=== PATIENT | female | born 1935 | race Caucasian/White ===

== ENCOUNTER → 2017-10-31 | Outpatient (CLI) | payer MEDICARE ==
[~2017-10-31] MED LIST: ACETAMINOPHEN650 M1 PO; ASA81 MG; BABY ASPIRIN81 MG PO; CALCIUM 600 +1 EAC8 PO; CELEBREX200 MG PO; CO Q-10200 MG PO; DIGOXIN125 MCG PO; FAMOTIDINE20 MG PO; IOPAMIDOL 370 MG/ML 200 ML INFUS..BTL INJ ONE; MELOXICAM7.5 MG PO; MULTI VITAMIN PO; PLAVIX75 MG PO; PRAVASTATIN SOD40 MG PO; SODIUM CHLORIDE 0.9% 100 ML 100 ML ONE; Z.0.ATENOLOL25 MG PO; ZOLOFT50 MG PO; [UNRECOGNIZED DRUG - OTHER] PO
[2017-10-31 08:30] LABS: BLOOD UREA NITROGEN 18 mg/dL (7-26); BUN/CREATININE RATIO 24 (6-25); CREATININE, SERUM 0.76 mg/dL (0.57-1.11); EST GLOMERULAR FILTRATION RATE > 60 ML/MIN (60-)
--- NOTE | 2017-10-31 11:14 | Diagnostic Imaging Report ---
EXAM: CTA OF THE ABDOMINAL AORTA INDICATION: \[id number] \[id number] \S\[id number] COMPARISON: CT abdomen and pelvis from 02/23/2016 TECHNIQUE: Multi-detector CT technology was employed. CTA of the abdomen and pelvis was performed after the administration of IV contrast. IV CONTRAST: 100 mL of Isovue-370 ORAL CONTRAST: None COMPLICATIONS: None RADIATION DOSE: Total DLP: 113.9 mGy*cm Estimated effective dose: (DLP x 0.015 x size factor) mSv CTDIvol has been reviewed. It is below the limits set by the Radiation Protocol Committee (RPC). For optimization of anatomic evaluation, multiplanar reconstruction, maximum intensity projections, and advanced 3-D off-line postprocessing were performed on a dedicated stand-alone workstation under the direct supervision of the interpreting physician. FINDINGS: Potential study limitations: None. VASCULAR WITH ADVANCED 3-D OFF-LINE POSTPROCESSING: Marked tortuosity of the abdominal aorta. Moderate calcified and noncalcified plaque throughout the abdominal aorta. 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 The maximum diameter of the abdominal aorta at this level is 3.2 cm, mildly aneurysmal. No surrounding intramural hematoma. Mild luminal narrowing of the most distal infrarenal abdominal aorta with minimal diameter of 0.7 cm due to extensive circumferential calcified plaques. The remaining abdominal aorta is normal in caliber. The abdominal aorta measures: 2.2 cm at the supramesenteric segment 2.3 cm at the mesenteric segment 1.8 cm at the renal segment 3.2 cm of the proximal infrarenal segment 2.5 cm at the mid infrarenal segment 1.3 cm at the aortic bifurcation, with a minimal lumen of 0.7 cm. The celiac trunk is patent and normal in caliber and associated with mild nonobstructing atherosclerotic calcifications in the proximal segment. Severe stenosis of the proximal SMA due to a mixed plaque. The remaining SMA and major branches are widely patent. The ELIJAH is patent without significant atherosclerotic disease. There are single right and 2 left renal arteries, which appear patent. Mild stenosis of the proximal inferior left renal artery due to calcified plaque. Nonobstructing calcified plaques in the proximal right renal artery. LOWER CHEST: Unremarkable. ABDOMEN: The liver, gallbladder, spleen, and pancreas appear normal. Mild thickening of the adrenal glands without discrete nodules. Both kidneys are normal in size, shape, and density. There is no abnormal mass or hydronephrosis. Unchanged right extrarenal pelvis. There is no significant retroperitoneal adenopathy. No free fluid or free air within the abdomen. The bowel appears unremarkable. BONES: Stable 1.8 cm sclerotic bone lesion within the posterior right ilium on series 3, image 81, which may represent a bone island or osteoma. Progressive sclerosis of L1 and L2 vertebral bodies and now with new involvement of T12. This may be due to progressive degenerative changes but consider bone scan if concern for primary malignancy. IMPRESSION: 1. Markedly tortuosity of the abdominal aorta with small wide neck penetrating ulcer/eccentric small aneurysm within the proximal infrarenal aspect resulting in mild dilatation (3.2 cm) at this level. -Diffuse calcified and noncalcified atherosclerotic changes throughout the abdominal aorta results in mild luminal narrowing at the most distal infrarenal segment with minimal diameter of 0.7 cm. -No acute abdominal aorta. 2. 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 Signed by: Dr. Mouna Fry M.D. on 10/31/2017 11:10 AM
== END ==
LOC: CT 07:41
PROVIDERS: ATTEND Internal Medicine Interventional Cardiology
DX: I71.4 Abdominal aortic aneurysm, without rupture (principal)
CPT/HCPCS: 36415; 74175; 82565; 84520; Q9967

== ENCOUNTER → 2018-03-25 | Outpatient (CLI) | payer MEDICARE ==
[~2018-03-25] MED LIST changes: -IOPAMIDOL 370 MG/ML 200 ML INFUS..BTL INJ ONE; -SODIUM CHLORIDE 0.9% 100 ML 100 ML ONE
[2018-03-25 10:08] LABS: BASOPHILS % 0.4 % (0.0-1.0); EOSINOPHILS # (AUTO) 0.1 (0.0-0.4); EOSINOPHILS % 1.5 % (0.0-6.0); HEMATOCRIT 46.7 % (34.2-44.1); LYMPHOCYTES # (AUTO) 1.4 (1.0-3.2); LYMPHOCYTES % 16.1 % (18.0-39.1); MEAN CORPUSCULAR HEMOGLOBIN 34.5 pg (28-32); MEAN CORPUSCULAR HGB CONC 32.8 g/dL (31-35); MEAN CORPUSCULAR VOLUME 105.2 fL (81-99); MONOCYTES # (AUTO) 0.8 (0.2-0.8); MONOCYTES % 8.4 % (4.4-11.3); NEUTROPHILS # (AUTO) 6.5 (2.1-6.9); NEUTROPHILS % 73.3 % (38.7-80.0); PLATELET COUNT 135 x10e3/uL (140-360); RED BLOOD COUNT 4.44 x10e6/uL (3.6-5.1)
[2018-03-25 10:10] LABS: HEMOGLOBIN 15.3 g/dL (12.0-16.0)
[2018-03-25 10:34] LABS: ALBUMIN 3.8 g/dL (3.5-5.0); ALBUMIN/GLOBULIN RATIO 1.5 (0.8-2.0); ANION GAP 14.9 mmol/L (8-16); CALCIUM 9.9 mg/dL (8.4-10.2); CREATININE, SERUM 0.94 mg/dL (0.57-1.11); POTASSIUM 5.9 mmol/L (3.5-5.1)
--- NOTE | 2018-03-25 10:56 | Diagnostic Imaging Report ---
PROCEDURE: X-RAY CHEST, TWO VIEWS COMPARISON: 03/07/2017. INDICATIONS: ANNUAL PHYSICAL FOR BREAST CANCER FINDINGS: The the lungs remain hyperinflated but without focal consolidation, pleural effusion, or pneumothorax. Stable cardiomediastinal contour with tortuosity and atherosclerotic calcification of the thoracic aorta. Left atrial enlargement is again evident on the lateral radiograph. No acute osseous abnormality. Loop recorder device is unchanged in position. CONCLUSION: No acute cardiopulmonary abnormality. Stable pulmonary hyperinflation in keeping with COPD. Dictated by: Rito Menendez M.D. on 03/25/2018 at 10:58 Electronically approved by: Rito Menendez M.D. on 03/25/2018 at 10:58
== END ==
LOC: MAMMO 09:18
PROVIDERS: ATTEND Surgery
DX: Z00.00 Encounter for general adult medical examination without abnormal findings (principal); Z12.31 Encounter for screening mammogram for malignant neoplasm of breast
CPT/HCPCS: 36415; 71046; 77067; 80053; 82378; 85025

== ENCOUNTER → 2019-03-29 | Outpatient (CLI) | payer MEDICARE ==
[~2019-03-29] MED LIST changes: +IOPAMIDOL 370 MG/ML 200 ML INFUS..BTL INJ ONE; +SODIUM CHLORIDE 0.9% 100 ML 100 ML ONE
[2019-03-29 14:18] LABS: BASOPHILS # (AUTO) 0.1 (0.0-0.1); BASOPHILS % 0.5 % (0.0-1.0); EOSINOPHILS # (AUTO) 0.1 (0.0-0.4); EOSINOPHILS % 1.1 % (0.0-6.0); HEMATOCRIT 43.6 % (34.2-44.1); HEMOGLOBIN 14.6 g/dL (12.0-16.0); LYMPHOCYTES # (AUTO) 1.6 (1.0-3.2); LYMPHOCYTES % 15.5 % (18.0-39.1); MEAN CORPUSCULAR HEMOGLOBIN 34.3 pg (28-32); MEAN CORPUSCULAR HGB CONC 33.5 g/dL (31-35); MEAN CORPUSCULAR VOLUME 102.3 fL (81-99); MONOCYTES # (AUTO) 0.8 (0.2-0.8); MONOCYTES % 7.4 % (4.4-11.3); NEUTROPHILS % 75.2 % (38.7-80.0); PLATELET COUNT 158 x10e3/uL (140-360); RED BLOOD COUNT 4.26 x10e6/uL (3.6-5.1); RED CELL DISTRIBUTION WIDTH 16.1 % (11.7-14.4)
[2019-03-29 14:36] LABS: ALANINE AMINOTRANSFERASE 21 IU/L (0-55); ALBUMIN/GLOBULIN RATIO 1.5 (0.8-2.0); ALKALINE PHOSPHATASE 56 IU/L (40-150); ANION GAP 13.3 mmol/L (8-16); BLOOD UREA NITROGEN 21 mg/dL (7-26); BUN/CREATININE RATIO 26 (6-25); CALCIUM 10.5 mg/dL (8.4-10.2); CARBON DIOXIDE 26 mmol/L (22-29); CHLORIDE 103 mmol/L (98-107); CREATININE, SERUM 0.82 mg/dL (0.57-1.11); EST GLOMERULAR FILTRATION RATE > 60 ML/MIN (60-); GLUCOSE 81 mg/dL (74-118); POTASSIUM 4.3 mmol/L (3.5-5.1); SODIUM 138 mmol/L (136-145)
--- NOTE | 2019-03-29 15:00 | Diagnostic Imaging Report ---
EXAMINATION: CHEST 2 VIEWS INDICATION: Yearly checkup. COMPARISON: None FINDINGS: TUBES and LINES: There is a cardiac loop recorder. LUNGS: Lungs are hyperinflated, suggestive of emphysematous changes. There is no evidence of pneumonia or pulmonary edema. Mild patchy left basilar opacity, likely atelectasis or scarring. PLEURA: No pleural effusion or pneumothorax. Slight nonspecific elevation of the right hemidiaphragm. HEART AND MEDIASTINUM: The cardiomediastinal silhouette is unremarkable. There are atherosclerotic calcifications within the aorta. BONES AND SOFT TISSUES: No acute osseous abnormality. UPPER ABDOMEN: No free air under the diaphragm. IMPRESSION: No acute radiographic abnormality. Signed by: Dr. Debbi Griffin MD on 03/29/2019 2:57 PM
--- NOTE | 2019-03-30 07:27 | Diagnostic Imaging Report ---
EXAMINATION: CT angiography of the abdomen with contrast. TECHNIQUE: Spiral CT images of the abdomen were performed from the lung bases to the iliac crests after the intravenous administration of 100 cc Isovue-370. Coronal and sagittal reformatted images were obtained. Optimization of anatomic definition, 3-D reconstructed images were generated on a stand-alone workstation under direct supervision of the interpreting physician. COMPARISON: CTA abdomen 10/31/2017 CLINICAL HISTORY:Aortic aneurysm DISCUSSION: LOWER THORAX:Mild juxtapleural reticular and groundglass opacities are unchanged and may represent subsegmental atelectasis or age-related fibrotic changes. HEPATOBILIARY: No focal hepatic lesions. No biliary ductal dilatation. The gallbladder is normal. SPLEEN: Heterogeneity of splenic attenuation reflects arterial phase of scan. PANCREAS: Coarse calcifications in the pancreatic head and uncinate process are unchanged and presumably a consequence of chronic pancreatitis. No focal mass or ductal dilatation. ADRENALS: No adrenal nodules. KIDNEYS/URETERS: Mild right pelviectasis is unchanged. No gross renal mass lesion. PERITONEUM/RETROPERITONEUM: No free air or fluid. LYMPH NODES: No mesenteric or upper retroperitoneal lymphadenopathy. VESSELS: Moderate calcified and noncalcified atherosclerotic plaque throughout the abdominal aorta. Unchanged small wide neck penetrating ulcer/eccentric small aneurysm in the right posterior lateral wall of the infrarenal abdominal aorta, just below the origin of the right renal artery, measuring 9 mm as seen on series 3 image 42. The infrarenal abdominal aorta remains mildly aneurysmal, measuring 3.2 cm. Similarly, there has been no appreciable interval change in mild stenosis of the distalmost abdominal aorta, just above the bifurcation, which measures 9 mm in maximum diameter. Service Observer Chief measurements are as follows: 2.3 cm at the supramesenteric segment 2.3 cm at the mesenteric segment 1.8 cm at the renal segment 3.2 cm at the proximal infrarenal segment 2.5 cm at the mid infrarenal segment 1.3 cm at the bifurcation, with luminal diameter 0.9 cm. The celiac axis remains patent, with mild stenosis at its origin. Unchanged severe stenosis at the SMA origin due to calcified and noncalcified atherosclerotic plaque. The ELIJAH origin is patent. Single right renal artery and 2 left renal arteries remain patent. GI TRACT: Visualized portions of the small and large bowel shows no distention or wall thickening. BONES AND SOFT TISSUE: Unchanged 1.8 cm densely sclerotic lesion in the right iliac wing, likely an osteoma. Sclerotic changes of the T12, L1, and L2 vertebral bodies unchanged and likely degenerative in nature. Multilevel degenerative disc changes and facet arthropathy of the lumbar spine. IMPRESSION: Overall, no significant interval change in the appearance of the abdominal aorta relative to 10/31/2017.. There remains a small penetrating ulcer/eccentric small aneurysm in the proximal infrarenal segment, resulting in mild aneurysmal dilatation (3.2 cm). No acute aortic pathology. Persistent mild stenosis of the distalmost abdominal aorta (0.9 cm). Unchanged severe SMA origin stenosis with patent celiac and ELIJAH origins. Signed by: Dr. Rito Menendez M.D. on 03/30/2019 7:24 AM
== END ==
LOC: MAMMO 13:24
PROVIDERS: ATTEND Surgery
DX: Z12.31 Encounter for screening mammogram for malignant neoplasm of breast (principal); Z00.00 Encounter for general adult medical examination without abnormal findings
CPT/HCPCS: 36415; 71046; 74175; 77067; 80053; 82378; 85025; Q9967

== ENCOUNTER → 2020-09-15 | Outpatient (CLI) | payer MEDICARE ==
[~2020-09-15] MED LIST changes: -IOPAMIDOL 370 MG/ML 200 ML INFUS..BTL INJ ONE; -SODIUM CHLORIDE 0.9% 100 ML 100 ML ONE
[2020-09-15 12:51] LABS: BASOPHILS % 0.4 % (0.0-1.0); EOSINOPHILS # (AUTO) 0.1 (0.0-0.4); EOSINOPHILS % 1.3 % (0.0-6.0); HEMATOCRIT 43.8 % (34.2-44.1); HEMOGLOBIN 14.3 g/dL (12.0-16.0); LYMPHOCYTES # (AUTO) 1.5 (1.0-3.2); MEAN CORPUSCULAR HEMOGLOBIN 33.4 pg (28-32); MEAN CORPUSCULAR HGB CONC 32.6 g/dL (31-35); MEAN CORPUSCULAR VOLUME 102.3 fL (81-99); MONOCYTES # (AUTO) 0.7 (0.2-0.8); MONOCYTES % 9.2 % (4.4-11.3); NEUTROPHILS # (AUTO) 5.1 (2.1-6.9); NEUTROPHILS % 68.8 % (38.7-80.0); PLATELET COUNT 167 x10e3/uL (140-360); RED BLOOD COUNT 4.28 x10e6/uL (3.6-5.1); RED CELL DISTRIBUTION WIDTH 16.2 % (11.7-14.4)
[2020-09-15 13:22] LABS: ALANINE AMINOTRANSFERASE 20 IU/L (0-55); ALBUMIN 3.6 g/dL (3.5-5.0); ALBUMIN/GLOBULIN RATIO 1.2 (0.8-2.0); ALKALINE PHOSPHATASE 50 IU/L (40-150); ANION GAP 13.1 mmol/L (8-16); BLOOD UREA NITROGEN 18 mg/dL (7-26); BUN/CREATININE RATIO 23 (6-25); CARBON DIOXIDE 27 mmol/L (22-29); CHLORIDE 105 mmol/L (98-107); CREATININE, SERUM 0.78 mg/dL (0.57-1.11); EST GLOMERULAR FILTRATION RATE > 60 ML/MIN (60-); GLUCOSE 89 mg/dL (74-118); POTASSIUM 4.1 mmol/L (3.5-5.1); SODIUM 141 mmol/L (136-145)
== END ==
LOC: MAMMO 12:01
PROVIDERS: ATTEND Surgery
DX: Z12.31 Encounter for screening mammogram for malignant neoplasm of breast (principal); Z85.3 Personal history of malignant neoplasm of breast
CPT/HCPCS: 36415; 71046; 77067; 80053; 82378; 85025

== ENCOUNTER → 2021-03-20 | Day surgery (SDC) | payer MEDICARE ==
[2021-03-15 11:18] LABS: BASOPHILS % 0.5 % (0.0-1.0); EOSINOPHILS # (AUTO) 0.1 (0.0-0.4); EOSINOPHILS % 1.4 % (0.0-6.0); HEMATOCRIT 45.5 % (34.2-44.1); HEMOGLOBIN 14.6 g/dL (12.0-16.0); LYMPHOCYTES # (AUTO) 1.4 (1.0-3.2); LYMPHOCYTES % 17.4 % (18.0-39.1); MEAN CORPUSCULAR HGB CONC 32.1 g/dL (31-35); MEAN CORPUSCULAR VOLUME 102.9 fL (81-99); MONOCYTES # (AUTO) 0.7 (0.2-0.8); MONOCYTES % 9.1 % (4.4-11.3); NEUTROPHILS # (AUTO) 5.7 (2.1-6.9); NEUTROPHILS % 71.2 % (38.7-80.0); PLATELET COUNT 139 x10e3/uL (140-360); RED BLOOD COUNT 4.42 x10e6/uL (3.6-5.1); RED CELL DISTRIBUTION WIDTH 18.2 % (11.7-14.4)
[2021-03-15 13:21] LABS: ALANINE AMINOTRANSFERASE 19 IU/L (0-55); ALBUMIN 3.6 g/dL (3.5-5.0); ALBUMIN/GLOBULIN RATIO 1.4 (0.8-2.0); ALKALINE PHOSPHATASE 52 IU/L (40-150); ANION GAP 15.3 mmol/L (8-16); BLOOD UREA NITROGEN 16 mg/dL (7-26); BUN/CREATININE RATIO 22 (6-25); CALCIUM 9.9 mg/dL (8.4-10.2); CARBON DIOXIDE 27 mmol/L (22-29); CHLORIDE 107 mmol/L (98-107); CREATININE, SERUM 0.73 mg/dL (0.57-1.11); EST GLOMERULAR FILTRATION RATE > 60 ML/MIN (60-); GLUCOSE 116 mg/dL (74-118); POTASSIUM 4.3 mmol/L (3.5-5.1); SODIUM 145 mmol/L (136-145)
[~2021-03-20] VITALS: Ht 162.6 cm; Wt 54.0 kg
[2021-03-20] VITALS (7 sets, daily range): BP systolic 75–140; BP diastolic 55–70
[~2021-03-20] MED LIST changes: +ALPRAZOLAM 0.5 MG TAB ONE; +ATORVASTATIN CA20 MG PO; +DIPHENHYDRAMINE HCL 25 MG CAP ONE; +FENTANYL CITRATE/PF 100MCG/2 ML INJ ONE; +GABAPENTIN100 MG PO; +HEPARIN SOD/SOD CHLORIDE 2,000 ML ONE; +IOPAMIDOL 370 MG/ML 200 ML INFUS..BTL INJ ONE; +LATANOPROST2.5 ML OP; +LIDOCAINE HCL 2% LOCAL 20 ML VIAL ONE; +MIDAZOLAM HCL 2 MG/2 ML VIAL ONE; +SODIUM CHLORIDE 0.9% 1000ML 1,000 ML ONE
== END | disposition home or self-care (01) ==
LOC: CATH LAB 10:58
PROVIDERS: ATTEND Internal Medicine Interventional Cardiology
DX: I25.110 Atherosclerotic heart disease of native coronary artery with unstable angina pectoris (principal); R94.39 Abnormal result of other cardiovascular function study; E78.00 Pure hypercholesterolemia, unspecified; I71.4 Abdominal aortic aneurysm, without rupture; I49.9 Cardiac arrhythmia, unspecified; H54.62 Unqualified visual loss, left eye, normal vision right eye; J43.8 Other emphysema; H35.30 Unspecified macular degeneration; K21.9 Gastro-esophageal reflux disease without esophagitis; Z01.812 Encounter for preprocedural laboratory examination; Z20.822 Contact with and (suspected) exposure to COVID-19; Z79.02 Long term (current) use of antithrombotics/antiplatelets; Z79.82 Long term (current) use of aspirin
CPT/HCPCS: 36415; 76937; 80053; 83880; 85025; 93454; C1769; C1887; J2001; J2250; J3010; J7030; Q9967; U0002; 99152

== ENCOUNTER → 2021-06-14 | Day surgery (SDC) | payer MEDICARE ==
[2021-06-12 10:59] LABS: BASOPHILS % 0.6 % (0.0-1.0); EOSINOPHILS # (AUTO) 0.1 (0.0-0.4); EOSINOPHILS % 1.4 % (0.0-6.0); HEMATOCRIT 42.6 % (34.2-44.1); HEMOGLOBIN 13.6 g/dL (12.0-16.0); LYMPHOCYTES # (AUTO) 1.3 (1.0-3.2); LYMPHOCYTES % 17.5 % (18.0-39.1); MEAN CORPUSCULAR HEMOGLOBIN 31.9 pg (28-32); MEAN CORPUSCULAR HGB CONC 31.9 g/dL (31-35); MONOCYTES # (AUTO) 0.7 (0.2-0.8); MONOCYTES % 9.9 % (4.4-11.3); NEUTROPHILS # (AUTO) 5.1 (2.1-6.9); NEUTROPHILS % 70.3 % (38.7-80.0); PLATELET COUNT 176 x10e3/uL (140-360); RED BLOOD COUNT 4.26 x10e6/uL (3.6-5.1); RED CELL DISTRIBUTION WIDTH 16.6 % (11.7-14.4)
[~2021-06-14] MED LIST changes: -ALPRAZOLAM 0.5 MG TAB ONE; -DIPHENHYDRAMINE HCL 25 MG CAP ONE; +EYE PO; -FENTANYL CITRATE/PF 100MCG/2 ML INJ ONE; -HEPARIN SOD/SOD CHLORIDE 2,000 ML ONE; -IOPAMIDOL 370 MG/ML 200 ML INFUS..BTL INJ ONE; -LIDOCAINE HCL 2% LOCAL 20 ML VIAL ONE; +LIDOPATCH1 EACH TOP; -MIDAZOLAM HCL 2 MG/2 ML VIAL ONE; +SERTRALINE HCL50 MG PO; -SODIUM CHLORIDE 0.9% 1000ML 1,000 ML ONE
[2021-06-14 08:43] VITALS: BP 112/57
== END | disposition home or self-care (01) ==
LOC: OR 06:10
PROVIDERS: ATTEND Internal Medicine Gastroenterology
DX: K21.9 Gastro-esophageal reflux disease without esophagitis (principal); K29.70 Gastritis, unspecified, without bleeding; R63.4 Abnormal weight loss; Z68.20 Body mass index [BMI] 20.0-20.9, adult; D64.9 Anemia, unspecified; I10 Essential (primary) hypertension; F32.9 Major depressive disorder, single episode, unspecified; K57.92 Diverticulitis of intestine, part unspecified, without perforation or abscess without bleeding; K44.9 Diaphragmatic hernia without obstruction or gangrene; Z87.891 Personal history of nicotine dependence; Z01.810 Encounter for preprocedural cardiovascular examination; Z01.812 Encounter for preprocedural laboratory examination; Z20.822 Contact with and (suspected) exposure to COVID-19
CPT/HCPCS: 36415; 43239; 85025; 93005; U0002

== ENCOUNTER 2021-11-20 10:26 | Observation (INO) | payer MEDICARE ==
[2021-11-15 09:59] LABS: BASOPHILS % 0.6 % (0.0-1.0); EOSINOPHILS # (AUTO) 0.1 (0.0-0.4); EOSINOPHILS % 0.8 % (0.0-6.0); HEMOGLOBIN 10.9 g/dL (12.0-16.0); LYMPHOCYTES # (AUTO) 1.1 (1.0-3.2); LYMPHOCYTES % 15.6 % (18.0-39.1); MEAN CORPUSCULAR HEMOGLOBIN 25.2 pg (28-32); MEAN CORPUSCULAR HGB CONC 29.5 g/dL (31-35); MEAN CORPUSCULAR VOLUME 85.6 fL (81-99); MONOCYTES # (AUTO) 0.7 (0.2-0.8); MONOCYTES % 9.2 % (4.4-11.3); NEUTROPHILS # (AUTO) 5.2 (2.1-6.9); NEUTROPHILS % 72.5 % (38.7-80.0); PLATELET COUNT 202 x10e3/uL (140-360); RED BLOOD COUNT 4.32 x10e6/uL (3.6-5.1)
[2021-11-15 10:11] LABS: ALBUMIN 3.5 g/dL (3.5-5.0); ALBUMIN/GLOBULIN RATIO 1.2 (0.8-2.0); ANION GAP 11.2 mmol/L (8-16); CALCIUM 9.2 mg/dL (8.4-10.2); CREATININE, SERUM 0.81 mg/dL (0.57-1.11); POTASSIUM 4.2 mmol/L (3.5-5.1)
[2021-11-20] VITALS (13 sets, daily range): BP systolic 115–145; BP diastolic 45–98
[~2021-11-20] VITALS: Ht 162.6 cm; Wt 53.5 kg
[2021-11-20] MEDS ORDERED: HEPARIN SOD (PORCINE) 1000 UNIT/ML 30ML ONE (13:21)
[2021-11-20] MEDS ORDERED: MIDAZOLAM HCL 2 MG/2 ML VIAL ONE ×2 (13:21→14:17)
[2021-11-20] MEDS ORDERED: NITROGLYCERIN/D5W 200 MCG/ML 250 ML ONE (13:22)
[2021-11-20] MEDS ORDERED: IOPAMIDOL 300MG/ML 100 ML INFUS..BTL IV ONE (13:22)
[2021-11-20] MEDS ORDERED: LIDOCAINE HCL 2% LOCAL 20 ML VIAL ONE (13:22)
[2021-11-20] MEDS ORDERED: SODIUM CHLORIDE 0.9% 1000ML 1,000 ML ONE ×2 (13:22→14:07)
[2021-11-20] MEDS ORDERED: HEPARIN SOD/SOD CHLORIDE 2,000 ML ONE (13:22)
[2021-11-20] MEDS ORDERED: FENTANYL CITRATE/PF 100MCG/2 ML INJ ONE (13:22)
[2021-11-20] MEDS ORDERED: VERAPAMIL HCL 2.5 MG/ML 2 ML VIAL ONE (14:07)
[2021-11-20] MEDS ORDERED: PROTAMINE SULFATE 10 MG/ML 5 ML VIAL ONE (14:36)
[2021-11-20] MEDS ORDERED: PRASUGREL 10 MG TAB ONE (14:37)
[2021-11-20] MEDS ORDERED: ASPIRIN 325 MG TAB ONE (14:37)
[2021-11-20] MEDS ORDERED: ATROPINE SULFATE 0.1 MG/ML 10ML SYR ONE (15:10)
[2021-11-20] MEDS ORDERED: SODIUM CHLORIDE 0.9% 500ML 500 ML IV ONE (16:30)
[2021-11-20] MEDS ORDERED: GABAPENTIN 300 MG CAP PO SCH (17:00)
[2021-11-20] MEDS: FAMOTIDINE 20 MG TAB PO SCH (17:17)
[2021-11-20] MEDS: ACETAMINOPHEN 325 MG TAB PO SCH (17:59)
[2021-11-20] MEDS ORDERED: ATENOLOL 12.5 MG PO SCH (21:00)
[2021-11-20] MEDS ORDERED: ATENOLOL 50 MG TAB PO SCH (21:00)
[2021-11-20] MEDS ORDERED: NON-FORMULARY MEDICATION (Acetaminophen 1,000 MG) PO SCH (21:00)
[2021-11-20] MEDS ORDERED: ATORVASTATIN 10 MG TAB PO SCH (21:00)
[2021-11-20] MEDS ORDERED: LATANOPROST(OPTH) 2.5 ML BTL OP SCH (21:00)
[2021-11-21] MEDS: ACETAMINOPHEN 325 MG TAB PO SCH (04:35)
[2021-11-21 04:42] VITALS: BP 101/43
[2021-11-21] MEDS: FAMOTIDINE 20 MG TAB PO SCH (07:30)
[2021-11-21] MEDS ORDERED: LIDOCAINE 4% PATCH TP SCH (09:00)
[2021-11-21] MEDS ORDERED: TAMOXIFEN CITRATE 10 MG TAB PO SCH (09:00)
[2021-11-21] MEDS ORDERED: SERTRALINE HCL 50 MG TAB PO SCH (09:00)
[2021-11-21] MEDS ORDERED: (Ubidecarenone (Co Q-10) 200 MG) PO SCH (09:00)
[2021-11-21] MEDS ORDERED: ASPIRIN 81 MG CHEW TAB PO SCH (09:00)
[2021-11-21] MEDS ORDERED: CLOPIDOGREL BISULFATE 75 MG TAB PO SCH (09:00)
== END 2021-11-21 08:13 | disposition home or self-care (01) ==
LOC: CATH LAB 10:26 → MED/SURG 16:52
PROVIDERS: ADMIT Internal Medicine Interventional Cardiology; ATTEND Internal Medicine Interventional Cardiology
DX: I70.211 Atherosclerosis of native arteries of extremities with intermittent claudication, right leg (principal); I25.118 Atherosclerotic heart disease of native coronary artery with other forms of angina pectoris; Z01.812 Encounter for preprocedural laboratory examination; Z20.822 Contact with and (suspected) exposure to COVID-19
CPT/HCPCS: 36415; 37186; 37225; 75625; 80053; 83880; 85025; C1724; C1725; C1769 ×3; C1887 ×2; C1894; G0378 ×2; J1644; J2001; J2250; J2720; J3010; J7030; J7040; Q9967; U0002; 36247; 37224; 37229; 75716; 99152; 99153

== ENCOUNTER → 2022-01-22 | Outpatient (CLI) | payer MEDICARE ==
[2022-01-22 11:26] LABS: BASOPHILS % 0.6 % (0.0-1.0); EOSINOPHILS # (AUTO) 0.1 (0.0-0.4); EOSINOPHILS % 1.5 % (0.0-6.0); HEMATOCRIT 30.6 % (34.2-44.1); HEMOGLOBIN 8.9 g/dL (12.0-16.0); LYMPHOCYTES # (AUTO) 1.2 (1.0-3.2); LYMPHOCYTES % 18.1 % (18.0-39.1); MEAN CORPUSCULAR HEMOGLOBIN 22.9 pg (28-32); MEAN CORPUSCULAR HGB CONC 29.1 g/dL (31-35); MEAN CORPUSCULAR VOLUME 78.9 fL (81-99); MONOCYTES # (AUTO) 0.6 (0.2-0.8); MONOCYTES % 9.2 % (4.4-11.3); NEUTROPHILS # (AUTO) 4.8 (2.1-6.9); NEUTROPHILS % 70.2 % (38.7-80.0); PLATELET COUNT 222 x10e3/uL (140-360); RED BLOOD COUNT 3.88 x10e6/uL (3.6-5.1); RED CELL DISTRIBUTION WIDTH 19.2 % (11.7-14.4)
[2022-01-22 11:38] LABS: ALBUMIN 3.4 g/dL (3.5-5.0); ALBUMIN/GLOBULIN RATIO 1.2 (0.8-2.0); CALCIUM 9.1 mg/dL (8.4-10.2); CREATININE, SERUM 0.83 mg/dL (0.57-1.11)
== END ==
LOC: MAMMO 10:12
PROVIDERS: ATTEND Surgery
DX: Z12.31 Encounter for screening mammogram for malignant neoplasm of breast (principal); R91.8 Other nonspecific abnormal finding of lung field
CPT/HCPCS: 36415; 71046; 77067; 80053; 82378; 85025

== ENCOUNTER 2022-02-04 10:07 | Emergency (ER) | payer MEDICARE ==
[~2022-02-04] VITALS: Ht 162.6 cm; Wt 53.5 kg
[2022-02-04 10:46] LABS: BASOPHILS % 0.4 % (0.0-1.0); HEMATOCRIT 30.1 % (34.2-44.1); HEMOGLOBIN 8.8 g/dL (12.0-16.0); LYMPHOCYTES # (AUTO) 0.9 (1.0-3.2); LYMPHOCYTES % 11.5 % (18.0-39.1); MEAN CORPUSCULAR HEMOGLOBIN 22.4 pg (28-32); MEAN CORPUSCULAR HGB CONC 29.2 g/dL (31-35); MEAN CORPUSCULAR VOLUME 76.6 fL (81-99); MONOCYTES # (AUTO) 0.5 (0.2-0.8); MONOCYTES % 7.2 % (4.4-11.3); NEUTROPHILS % 80.5 % (38.7-80.0); PLATELET COUNT 240 x10e3/uL (140-360); RED BLOOD COUNT 3.93 x10e6/uL (3.6-5.1); RED CELL DISTRIBUTION WIDTH 18.5 % (11.7-14.4)
[2022-02-04] MEDS ORDERED: DIATRIZOATE MEGL/DIATRIZOA SOD 30 ML BTL PO ONE (10:55)
[2022-02-04 10:57] LABS: INR 1.12; PROTHROMBIN TIME 15.4 seconds (11.9-14.5)
[2022-02-04 11:14] LABS: ALANINE AMINOTRANSFERASE 12 IU/L (0-55); ALBUMIN 3.5 g/dL (3.5-5.0); ALBUMIN/GLOBULIN RATIO 1.2 (0.8-2.0); ALKALINE PHOSPHATASE 47 IU/L (40-150); ANION GAP 11.9 mmol/L (8-16); BLOOD UREA NITROGEN 18 mg/dL (7-26); BUN/CREATININE RATIO 22 (6-25); CALCIUM 8.4 mg/dL (8.4-10.2); CARBON DIOXIDE 26 mmol/L (22-29); CHLORIDE 107 mmol/L (98-107); CREATINE KINASE 43 IU/L (29-168); CREATININE, SERUM 0.82 mg/dL (0.57-1.11); EST GLOMERULAR FILTRATION RATE 66 ML/MIN (60-); GLUCOSE 91 mg/dL (74-118); POTASSIUM 3.9 mmol/L (3.5-5.1); SODIUM 141 mmol/L (136-145)
[2022-02-04 11:29] LABS: CLARITY,URINE CLEAR (CLEAR); COLOR,URINE YELLOW (YELLOW); LEUKOCYTE ESTERASE ,URINE NEGATIVE (NEGATIVE)
[2022-02-04 11:30] LABS: KETONES,URINE NEGATIVE (NEGATIVE); NITRITE,URINE NEGATIVE (NEGATIVE); PROTEIN,URINE DIPSTICK NEGATIVE (NEGATIVE); URINE UROBILINOGEN 0.2 mg/dL (0.2 - 1)
[2022-02-04 11:32] LABS: BACTERIA,URINE FEW /HPF; EPITHELIAL CELLS,URINE MODERATE /LPF; RBC,URINE 0-5 /HPF (0-5); WBC,URINE (MAN) 0-5 /HPF (0-5)
[2022-02-04] MEDS ORDERED: ONDANSETRON ODT4 MG PO (13:37)
[2022-02-04] MEDS ORDERED: IOPAMIDOL 370 MG/ML 200 ML INFUS..BTL INJ ONE (14:45)
[2022-02-04] MEDS ORDERED: SODIUM CHLORIDE 0.9% 50ML 50 ML ONE (14:45)
== END 2022-02-04 13:50 | disposition home or self-care (01) ==
LOC: ER 10:12
DX: R10.13 Epigastric pain (principal); K86.1 Other chronic pancreatitis; R11.0 Nausea; Z86.73 Personal history of transient ischemic attack (TIA), and cerebral infarction without residual deficits; K21.9 Gastro-esophageal reflux disease without esophagitis; Z85.3 Personal history of malignant neoplasm of breast
CPT/HCPCS: 36415; 70450; 71260; 74177; 80053; 81001; 82550; 82553; 83690; 83880; 84484; 85025; 85610; 85730; 99283; Q9967

== ENCOUNTER 2022-03-14 18:41 | Inpatient (IN) | payer MEDICARE ==
[~2022-03-14] VITALS: Ht 162.6 cm; Wt 46.3 kg
[~2022-03-14 18:41] MED LIST changes: +DICYCLOMINE HCL10 MG PO; +IRON325 M1 PO; +ONDANSETRON ODT4 MG PO; +VITAMIN C500 MG PO
[2022-03-14] MEDS ORDERED: SODIUM CHLORIDE 0.9% 1000ML 2,000 ML IV ONE (19:15)
[2022-03-14] MEDS ORDERED: ACETAMINOPHEN 325 MG TAB PO ONE (19:30)
[2022-03-14 19:35] LABS: BASOPHILS % 0.3 % (0.0-1.0); EOSINOPHILS % 0.3 % (0.0-6.0); HEMATOCRIT 33.2 % (34.2-44.1); HEMOGLOBIN 9.9 g/dL (12.0-16.0); LYMPHOCYTES # (AUTO) 1.3 (1.0-3.2); LYMPHOCYTES % 13.7 % (18.0-39.1); MEAN CORPUSCULAR HEMOGLOBIN 23.4 pg (28-32); MEAN CORPUSCULAR HGB CONC 29.8 g/dL (31-35); MEAN CORPUSCULAR VOLUME 78.5 fL (81-99); MONOCYTES # (AUTO) 0.8 (0.2-0.8); MONOCYTES % 8.4 % (4.4-11.3); NEUTROPHILS # (AUTO) 7.2 (2.1-6.9); PLATELET COUNT 370 x10e3/uL (140-360); RED BLOOD COUNT 4.23 x10e6/uL (3.6-5.1); RED CELL DISTRIBUTION WIDTH 23.9 % (11.7-14.4)
[2022-03-14 19:51] LABS: ALANINE AMINOTRANSFERASE 9 IU/L (0-55); ALBUMIN 2.9 g/dL (3.5-5.0); ALBUMIN/GLOBULIN RATIO 0.9 (0.8-2.0); ALKALINE PHOSPHATASE 50 IU/L (40-150); ANION GAP 19.6 mmol/L (8-16); BLOOD UREA NITROGEN 21 mg/dL (7-26); BUN/CREATININE RATIO 33 (6-25); CALCIUM 8.7 mg/dL (8.4-10.2); CARBON DIOXIDE 21 mmol/L (22-29); CHLORIDE 102 mmol/L (98-107); CREATINE KINASE 19 IU/L (29-168); CREATININE, SERUM 0.64 mg/dL (0.57-1.11); GLUCOSE 75 mg/dL (74-118); POTASSIUM 3.6 mmol/L (3.5-5.1); SODIUM 139 mmol/L (136-145)
[2022-03-14] MEDS ORDERED: IOPAMIDOL 370 MG/ML 100 ML INFUS..BTL INJ ONE (20:54)
[2022-03-14] MEDS ORDERED: Morphine 2mg Syringe 2 MG/ML SYR IV PRN (22:45)
[2022-03-14] MEDS ORDERED: SODIUM CHLORIDE 0.9% 1000ML 1,000 ML IV ONE (22:45)
[2022-03-14] MEDS: SODIUM CHLORIDE 0.9% 1000ML 1,000 ML IV SCH (23:05)
[2022-03-15 05:06] LABS: BASOPHILS % 0.3 % (0.0-1.0); EOSINOPHILS # (AUTO) 0.1 (0.0-0.4); EOSINOPHILS % 0.9 % (0.0-6.0); HEMATOCRIT 28.9 % (34.2-44.1); HEMOGLOBIN 8.6 g/dL (12.0-16.0); LYMPHOCYTES % 16.4 % (18.0-39.1); MEAN CORPUSCULAR HEMOGLOBIN 23.4 pg (28-32); MEAN CORPUSCULAR HGB CONC 29.8 g/dL (31-35); MEAN CORPUSCULAR VOLUME 78.5 fL (81-99); MONOCYTES # (AUTO) 0.6 (0.2-0.8); MONOCYTES % 9.8 % (4.4-11.3); NEUTROPHILS # (AUTO) 4.2 (2.1-6.9); NEUTROPHILS % 72.3 % (38.7-80.0); PLATELET COUNT 310 x10e3/uL (140-360); RED BLOOD COUNT 3.68 x10e6/uL (3.6-5.1); RED CELL DISTRIBUTION WIDTH 23.9 % (11.7-14.4)
[2022-03-15 05:25] LABS: ALBUMIN 2.4 g/dL (3.5-5.0); ALBUMIN/GLOBULIN RATIO 0.9 (0.8-2.0); ANION GAP 13.6 mmol/L (8-16); CALCIUM 7.5 mg/dL (8.4-10.2); CREATININE, SERUM 0.6 mg/dL (0.57-1.11); POTASSIUM 3.6 mmol/L (3.5-5.1)
[2022-03-15] MEDS: SODIUM CHLORIDE 0.9% 1000ML 1,000 ML IV SCH ×2 (05:45→14:45)
[2022-03-15 05:49] LABS: CLARITY,URINE TURBID (CLEAR); COLOR,URINE YELLOW (YELLOW); KETONES,URINE 2+ (NEGATIVE); LEUKOCYTE ESTERASE ,URINE TRACE (NEGATIVE); NITRITE,URINE NEGATIVE (NEGATIVE); PROTEIN,URINE DIPSTICK NEGATIVE (NEGATIVE); URINE UROBILINOGEN 0.2 mg/dL (0.2 - 1)
[2022-03-15 05:51] LABS: BACTERIA,URINE FEW /HPF; EPITHELIAL CELLS,URINE MANY /LPF; WBC,URINE (MAN) >50 /HPF (0-5)
[2022-03-15] MEDS: ONDANSETRON HCL INJ 2MG/ML 2ML 2 MG/ML VIAL IV PRN ×2 (08:12→13:32)
[2022-03-15 09:53] LABS: PLATELET ESTIMATE ADEQUATE; PLATELET MORPHOLOGY COMMENT NORMAL; RBC MORPHOLOGY COMMENT NORMAL
[2022-03-15 12:49] VITALS: BP 131/50
[2022-03-15 15:59] VITALS: BP 119/53
[2022-03-15 20:04] VITALS: BP 114/60
[2022-03-15 20:08] VITALS: BP 114/60
[2022-03-15 22:52] LABS: % IRON SATURATION 5 % (15-50); IRON 15 ug/dL (50-170); TOTAL IRON BINDING CAPACITY 300 ug/dL (261-478); TRANSFERRIN 214 mg/dL (180-382)
[2022-03-15] MEDS: METOCLOPRAMIDE HCL 10 MG/2ML VIAL IV SCH (23:35)
[2022-03-15] MEDS: LACTATED RINGER'S 1,000 ML INJ SCH (23:35)
[2022-03-16] VITALS (7 sets, daily range): BP systolic 102–134; BP diastolic 56–70
[2022-03-16] MEDS: METOCLOPRAMIDE HCL 10 MG/2ML VIAL IV SCH ×4 (05:22→23:20)
[2022-03-16 05:36] LABS: BASOPHILS % 0.5 % (0.0-1.0); EOSINOPHILS # (AUTO) 0.1 (0.0-0.4); HEMATOCRIT 28.1 % (34.2-44.1); LYMPHOCYTES # (AUTO) 0.8 (1.0-3.2); LYMPHOCYTES % 14.6 % (18.0-39.1); MEAN CORPUSCULAR HEMOGLOBIN 23.1 pg (28-32); MEAN CORPUSCULAR HGB CONC 28.5 g/dL (31-35); MEAN CORPUSCULAR VOLUME 81.2 fL (81-99); MONOCYTES # (AUTO) 0.6 (0.2-0.8); MONOCYTES % 9.7 % (4.4-11.3); NEUTROPHILS # (AUTO) 4.3 (2.1-6.9); NEUTROPHILS % 73.9 % (38.7-80.0); PLATELET COUNT 308 x10e3/uL (140-360); RED BLOOD COUNT 3.46 x10e6/uL (3.6-5.1); RED CELL DISTRIBUTION WIDTH 23.9 % (11.7-14.4)
[2022-03-16 05:55] LABS: INR 1.26; PROTHROMBIN TIME 16.9 seconds (11.9-14.5)
[2022-03-16 06:08] LABS: ALBUMIN 2.3 g/dL (3.5-5.0); ANION GAP 15.5 mmol/L (8-16); CALCIUM 7.8 mg/dL (8.4-10.2); CREATININE, SERUM 0.57 mg/dL (0.57-1.11); POTASSIUM 3.5 mmol/L (3.5-5.1)
[2022-03-16] MEDS: LACTATED RINGER'S 1,000 ML INJ SCH ×4 (06:45→23:20)
[2022-03-16] MEDS ORDERED: IRON SUCROSE 100 MG in SODIUM CHLORIDE 0.9% 100 ML 100 ML IV SCH (09:00)
[2022-03-16] MEDS: ONDANSETRON HCL INJ 2MG/ML 2ML 2 MG/ML VIAL IV PRN (11:14)
[2022-03-16] MEDS: ENOXAPARIN SOD INJ 40 MG/0.4 ML SYR SC SCH (17:00)
[2022-03-16] MEDS: IRON SUCROSE 100 MG in SODIUM CHLORIDE 0.9% 100 ML 100 ML IV SCH (20:25)
[2022-03-16] MEDS ORDERED: CYANOCOBALAMIN INJ 1,000 MCG/ML VIAL IM ONE (23:15)
[2022-03-17] VITALS (8 sets, daily range): BP systolic 102–146; BP diastolic 53–76
[2022-03-17] MEDS: METOCLOPRAMIDE HCL 10 MG/2ML VIAL IV SCH ×3 (06:29→18:00)
[2022-03-17] MEDS: LACTATED RINGER'S 1,000 ML INJ SCH ×3 (08:47→20:42)
[2022-03-17] MEDS ORDERED: CYANOCOBALAMIN INJ 1,000 MCG/ML VIAL IM SCH (09:00)
[2022-03-17] MEDS: ONDANSETRON HCL INJ 2MG/ML 2ML 2 MG/ML VIAL IV PRN (10:20)
[2022-03-17] MEDS: ENOXAPARIN SOD INJ 40 MG/0.4 ML SYR SC SCH (17:00)
[2022-03-17] MEDS: IRON SUCROSE 100 MG in SODIUM CHLORIDE 0.9% 100 ML 100 ML IV SCH (20:45)
[2022-03-17] MEDS: CYANOCOBALAMIN INJ 1,000 MCG/ML VIAL IM SCH (20:45)
[2022-03-18] VITALS (7 sets, daily range): BP systolic 113–125; BP diastolic 49–63
[2022-03-18] MEDS: ONDANSETRON HCL INJ 2MG/ML 2ML 2 MG/ML VIAL IV PRN ×2 (03:50→07:50)
[2022-03-18] MEDS: METOCLOPRAMIDE HCL 10 MG/2ML VIAL IV SCH ×4 (05:39→17:03)
[2022-03-18] MEDS: LACTATED RINGER'S 1,000 ML INJ SCH (05:40)
[2022-03-18] MEDS ORDERED: POTASSIUM CHLORIDE 20 MEQ TAB CR PO ONE (11:30)
[2022-03-18] MEDS ORDERED: BUPIVACAINE 0.25% 30ML SDV ONE (12:35)
[2022-03-18] MEDS ORDERED: IOPAMIDOL 610MG/1ML 300 MG/ML VIAL IV ONE (12:52)
[2022-03-18] MEDS ORDERED: FENTANYL CITRATE/PF 100MCG/2 ML INJ ONE (12:55)
[2022-03-18] MEDS ORDERED: KETOROLAC TROMETHAMINE 30 MG/ML VIAL ONE (13:31)
[2022-03-18] MEDS ORDERED: SEVOFLURANE INHAL SOLN 250 ML PEN BTL ONE (13:31)
[2022-03-18] MEDS ORDERED: DEXAMETHASONE SOD PHOS INJ 4 MG/ML SDV ONE (13:31)
[2022-03-18] MEDS ORDERED: LIDOCAINE HCL 2% LOCAL INJ 5 ML SDV VIAL INJ ONE (13:31)
[2022-03-18] MEDS ORDERED: ONDANSETRON HCL INJ 2MG/ML 2ML 2 MG/ML VIAL ONE (13:31)
[2022-03-18] MEDS ORDERED: PROPOFOL IV EMULSION 10 MG/ML 20 ML VIAL ONE (13:31)
[2022-03-18] MEDS ORDERED: EPHEDRINE SULFATE INJ 50 MG/ML VIAL ONE (13:31)
[2022-03-18] MEDS ORDERED: GLYCOPYRROLATE INJ 0.2 MG/ML VIAL ONE (13:31)
[2022-03-18] MEDS ORDERED: NEOSTIGMINE 1 MG/ML 10ML VIAL ONE (13:31)
[2022-03-18] MEDS ORDERED: POVIDONE IODINE 0.05% 0.05 % ML PO ONE (13:31)
[2022-03-18] MEDS ORDERED: ROCURONIUM BROMIDE 10 MG/ML 5ML VIAL IV ONE (13:31)
[2022-03-18] MEDS: DEXTROSE 5%/LACTATED RINGERS 1,000 ML IV SCH (15:26)
[2022-03-18] MEDS: HYDROCODONE/APAP 5MG-325MG TAB PO PRN (17:10)
[2022-03-18] MEDS: CYANOCOBALAMIN INJ 1,000 MCG/ML VIAL IM SCH (20:11)
[2022-03-18] MEDS: IRON SUCROSE 100 MG in SODIUM CHLORIDE 0.9% 100 ML 100 ML IV SCH (20:11)
[2022-03-19] VITALS: BP 110/54
[2022-03-19] MEDS: METOCLOPRAMIDE HCL 10 MG/2ML VIAL IV SCH ×3 (00:15→12:30)
[2022-03-19] MEDS: DEXTROSE 5%/LACTATED RINGERS 1,000 ML IV SCH ×2 (00:15→12:36)
[2022-03-19 04:00] VITALS: BP 98/52
[2022-03-19 06:01] LABS: BASOPHILS % 0.4 % (0.0-1.0); EOSINOPHILS % 0.4 % (0.0-6.0); HEMATOCRIT 29.5 % (34.2-44.1); HEMOGLOBIN 8.8 g/dL (12.0-16.0); LYMPHOCYTES # (AUTO) 0.8 (1.0-3.2); LYMPHOCYTES % 15.7 % (18.0-39.1); MEAN CORPUSCULAR HEMOGLOBIN 23.3 pg (28-32); MEAN CORPUSCULAR HGB CONC 29.8 g/dL (31-35); MONOCYTES # (AUTO) 0.6 (0.2-0.8); MONOCYTES % 11.4 % (4.4-11.3); NEUTROPHILS # (AUTO) 3.8 (2.1-6.9); NEUTROPHILS % 71.7 % (38.7-80.0); PLATELET COUNT 297 x10e3/uL (140-360); RED BLOOD COUNT 3.78 x10e6/uL (3.6-5.1); RED CELL DISTRIBUTION WIDTH 23.3 % (11.7-14.4)
[2022-03-19 06:28] LABS: ALANINE AMINOTRANSFERASE 12 IU/L (0-55); ALBUMIN 2.2 g/dL (3.5-5.0); ALBUMIN/GLOBULIN RATIO 0.9 (0.8-2.0); ALKALINE PHOSPHATASE 48 IU/L (40-150); ANION GAP 11.3 mmol/L (8-16); BLOOD UREA NITROGEN < 5 mg/dL (7-26); CALCIUM 7.9 mg/dL (8.4-10.2); CARBON DIOXIDE 28 mmol/L (22-29); CHLORIDE 105 mmol/L (98-107); CREATININE, SERUM 0.63 mg/dL (0.57-1.11); GLUCOSE 136 mg/dL (74-118); POTASSIUM 3.3 mmol/L (3.5-5.1); SODIUM 141 mmol/L (136-145)
[2022-03-19 06:29] LABS: MAGNESIUM 1.3 MG/DL (1.3-2.1); PHOSPHORUS 3.5 MG/DL (2.3-4.7)
[2022-03-19 06:31] LABS: BUN/CREATININE RATIO 8 (6-25)
[2022-03-19 08:10] VITALS: BP 100/54
[2022-03-19 08:18] VITALS: BP 100/54
[2022-03-19] MEDS: HYDROCODONE/APAP 5MG-325MG TAB PO PRN ×2 (08:49→16:40)
[2022-03-19] MEDS ORDERED: MAGNESIUM SULFATE 2GM/50ML 50 ML IV ONE (09:00)
[2022-03-19 10:47] LABS: ANISOCYTOSIS MODERATE; MICROCYTOSIS MODERATE; OVALOCYTES FEW; PLATELET ESTIMATE ADEQUATE; PLATELET MORPHOLOGY COMMENT NORMAL; RBC MORPHOLOGY COMMENT ABNORMAL
[2022-03-19 10:48] LABS: HYPOCHROMASIA MODERATE
[2022-03-19] MEDS ORDERED: MAGNESIUM SULF 1GRAM/DEXTROSE 100 ML IV ONE (11:00)
[2022-03-19 11:54] VITALS: BP 104/58
[2022-03-19] MEDS ORDERED: POTASSIUM CHLORIDE 20 MEQ TAB CR PO ONE (14:00)
[2022-03-19] MEDS ORDERED: ACETAMINOPHEN325 M1 PO (15:06)
[2022-03-19] MEDS ORDERED: HYDROCODON-ACE1 EA11 PO (15:06)
[2022-03-19] MEDS ORDERED: VITAMIN B-121000 MCG PO (15:06)
[2022-03-19] MEDS ORDERED: CREON DR 36,001 EACH PO (15:06)
[2022-03-19] MEDS ORDERED: PROTONIX40 MG PO (15:06)
[2022-03-19] MEDS ORDERED: KEFLEX125 MG/5 M PO (15:06)
[2022-03-19] MEDS ORDERED: VITAMIN C 500500 MG PO (15:06)
[2022-03-19] MEDS ORDERED: IRON325 M1 PO (15:06)
[2022-03-19] MEDS ORDERED: CYANOCOBALAMIN INJ 1,000 MCG/ML VIAL IM ONE (16:00)
[2022-03-19 16:17] VITALS: BP 120/60
== END 2022-03-19 17:45 | disposition home or self-care (01) | DRG 356 ==
LOC: ER 19:18 → ERHOLD 22:47 → MED/SURG 03-15 12:35 → INTOOBSV 03-16 05:47 → OBSVTOIN 03-16 05:47
PROVIDERS: ADMIT Internal Medicine; ATTEND Internal Medicine
PROC: BF131ZZ Fluoroscopy of Gallbladder and Bile Ducts using Low Osmolar Contrast (ICD-10-PCS; 2022-03-18)
PROC: 0FT44ZZ Resection of Gallbladder, Percutaneous Endoscopic Approach (ICD-10-PCS; principal; 2022-03-18 12:43)
DX: C78.89 Secondary malignant neoplasm of other digestive organs (principal); E43 Unspecified severe protein-calorie malnutrition; K81.0 Acute cholecystitis; E87.2 Acidosis; D62 Acute posthemorrhagic anemia; Z68.1 Body mass index [BMI] 19.9 or less, adult; N13.6 Pyonephrosis; K86.1 Other chronic pancreatitis; R18.8 Other ascites; K21.9 Gastro-esophageal reflux disease without esophagitis; K82.8 Other specified diseases of gallbladder; R62.7 Adult failure to thrive; Z85.3 Personal history of malignant neoplasm of breast; H91.93 Unspecified hearing loss, bilateral; Z90.710 Acquired absence of both cervix and uterus; K29.70 Gastritis, unspecified, without bleeding; E83.51 Hypocalcemia; R31.29 Other microscopic hematuria; N39.46 Mixed incontinence; Z88.5 Allergy status to narcotic agent; E87.6 Hypokalemia; J44.9 Chronic obstructive pulmonary disease, unspecified; E83.42 Hypomagnesemia; Z20.822 Contact with and (suspected) exposure to COVID-19; Z90.10 Acquired absence of unspecified breast and nipple; G89.29 Other chronic pain; I71.9 Aortic aneurysm of unspecified site, without rupture; Q63.2 Ectopic kidney; R11.0 Nausea; T81.89XA Other complications of procedures, not elsewhere classified, initial encounter; K81.1 Chronic cholecystitis; I73.9 Peripheral vascular disease, unspecified; E78.5 Hyperlipidemia, unspecified; G89.18 Other acute postprocedural pain; C80.1 Malignant (primary) neoplasm, unspecified
CPT/HCPCS: 36415; 71045; 74177; 74181; 74300; 78227; 78708; 80053; 81001; 82270; 82550; 82553; 82607; 82746; 82948; 83540; 83605; 83690; 83735; 83880; 84100; 84466; 84478; 84484; 85025; 85045; 85610; 86301; 87040; 88304; 88342; 93005; 94799; 97139; 99251; 99284; A9537; A9562; C1713; C1766; G0378; J1100; J1650; J1756; J1885; J2001; J2405; J2543; J2710; J2765; J3010; J3420; J3475; J7030; J7121; Q9967